=== PATIENT | male | born 1960 | race Caucasian/White ===

== ENCOUNTER → 2018-10-03 | Outpatient (CLI) | payer OTHER ==
[2018-10-03 16:20] LABS: CREATININE 2.1 mg/dL (0.6-1.3); POTASSIUM 5.1 mmol/L (3.5-5.1)
[2018-10-03 22:07] LABS: GLYCOHEMOGLOBIN (HGB A1C) 6.6 % (4.8-5.6)
== END ==
LOC: M.LAB 15:47
PROVIDERS: Internal Medicine Endocrinology, Diabetes & Metabolism
DX: E11.9 Type 2 diabetes mellitus without complications (principal)

== ENCOUNTER → 2019-07-11 | Outpatient (CLI) | payer OTHER ==
[2019-07-11 16:20] LABS: ALBUMIN 3.8 g/dL (3.4-5.0); CALCIUM 8.2 mg/dL (8.5-10.1); CREATININE 2.4 mg/dL (0.6-1.3); PHOSPHORUS* 3.9 mg/dL (2.5-4.9); POTASSIUM 4.8 mmol/L (3.5-5.1)
[2019-07-11 16:23] LABS: URINE BILIRUBIN NEGATIVE (Negative); URINE BLOOD NEGATIVE (Negative); URINE CLARITY CLEAR; URINE COLOR YELLOW; URINE GLUCOSE-RANDOM NEGATIVE (Negative); URINE KETONES NEGATIVE (Negative); URINE LEUKOCYTES NEGATIVE (Negative); URINE NITRITE NEGATIVE (Negative); URINE PROTEIN 2+ (Negative); URINE SPECIFIC GRAVITY >= 1.030 (1.005-1.030); URINE UROBILINOGEN 0.2 E.U./dl (0.2-1.0)
[2019-07-11 16:39] LABS: CASTS None Seen /LPF (None Seen); CRYSTALS None Seen /LPF (None Seen); SQUAMOUS 0-3 Few /LPF (0-3); URINE RBC 0-2 Rare /HPF (0-2); URINE WBC 6-15 Few /HPF (0-5)
== END ==
LOC: M.LAB 15:40
PROVIDERS: Hospitalist
DX: I12.9 Hypertensive chronic kidney disease with stage 1 through stage 4 chronic kidney disease, or unspecified chronic kidney disease (principal); N18.3 Chronic kidney disease, stage 3 (moderate)

== ENCOUNTER 2021-08-25 10:24 | Observation (INO) | payer OTHER ==
[~2021-08-25] VITALS: Ht 175.3 cm; Wt 81.6 kg
--- NOTE | ~2021-08-25 | OP ---
[address] [address] OPERATIVE REPORT Name: OMKAR LOERA Room: [facility]#: [id number] Admission: 08/25/21 Attend Phys: Micah Cody MD Discharge: Date of : 62 Report #: [id number] THIS REPORT FOR: cc: El Walls MD, Neal A. MD Haggard,Micah Mercer MD ~ DATE OF SURGERY: 08/25/2021 PREOPERATIVE DIAGNOSIS: BPH with obstruction. POSTOPERATIVE DIAGNOSIS: BPH with obstruction. PROCEDURE: Cystoscopy, transurethral resection of the prostate. STAFF SURGEON: Micah Cody MD TANK CALIBRATOR: None. ANESTHESIA: General. ESTIMATED BLOOD LOSS: 10 mL. COMPLICATIONS: None. SPECIMEN: Prostate chips. DRAINS 20-Russian 3-way Alberto catheter. INDICATIONS: The patient is a pleasant 60-year-old white male complaining of significant lower urinary tract symptoms. He reports his force of stream is "very, very, very low." He states "it is so bad that I have to sit down and go." He voids every 3-4 hours despite tamsulosin 0.4 mg p.o. b.i.d. He gets up twice at night. 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 Cystoscopically was verified to have bladder outlet obstruction. He was counseled regarding treatment options, elected for definitive cystoscopy with transurethral resection of the prostate. After risks and benefits of the procedure explained, informed consent was obtained. DESCRIPTION OF PROCEDURE: The patient was taken to the operating room comfortably placed in the dorsal lithotomy position under adequate general anesthesia. He was sterilely prepped and draped in standard fashion exposing only the genitalia. He received his antibiotic therapy as prescribed of 2 grams of intravenous Ancef. Appropriate timeout was carried out and all were in agreement. A 22-Russian cystoscope was placed in the urethra. Anterior urethra was normal, sphincter intact. Prostate showed [place] [address] OPERATIVE REPORT Name: OMKAR LOERA Room: [facility]#: [id number] Admission: 08/25/21 Attend Phys: Micah Cody MD Discharge: Date of : 62 Report #: [id number] hyperplasia with visual obstruction. Bladder was systematically viewed. He had vhgl-yn-dkxafowz trabeculation throughout the bladder. No bladder calculi seen or foreign body observed. Both ureteral orifices identified and effluxed clear urine. The cystoscope was removed. Elise sounds from 26-Russian to 28-Russian were used to gently dilate the urethra. 26-Russian continuous flow sheath was gently placed through the urethra into the bladder and Joel resectoscope put in place and technology was used to resect the obstructing prostatic adenoma from bladder neck to the verumontanum circumferentially with care not to damage either the sphincter or either ureteral orifice. Button was put in place. It smoothed out the lining of the prostatic fossa. Ellik evacuator was used to remove prostate chips from the bladder. Plasma loop was put back in place and were used to retrieve some isolated prostate chips that still remained in the bladder and also to fulgurate bleeding within the prostate. Meticulous hemostasis verified. The visual inspection showed no residual fragments in the prostatic fossa or in the bladder. The resectoscope was removed and a 20-Russian 3-way Alberto catheter was put in place over the guidewire and secured with 30 mL of sterile water placed and then clear return. He tolerated this extremely well. He was extubated in the operating room and transferred to [facility] with assistance and went to recovery in stable condition. Anticipate just light irrigation in the recovery room before going to home. May remove his Alberto catheter on Sunday. Follow up in office in a week. By: 1320 1422Ryant Sylvie Cody MD /angela
[~2021-08-25 10:24] MED LIST: AMLODIPINE BESY10 MG PO; FLUTICASONE PRO16 GM NARES; LANTUS SOL100 UNIT/1 SUBQ; LOSARTAN POTAS100 MG PO; PROTONIX40 M2 PO; TAMSULOSIN HCL0.4 MG PO; ZOLOFT 50 MG TA50 MG PO
[2021-08-25 11:05] LABS: HEMATOCRIT 30.2 % (42.0-52.0); HEMOGLOBIN 10.2 gm/dL (14.0-18.0); MCH 33.9 pg (26.0-34.0); MCHC 33.7 g/dL (28.0-37.0); MCV 100.8 fL (80.0-100.0); MPV 7.3 fl. (7.2-11.1); RBC 2.99 mil/uL (4.50-6.00); RDW-CV 12.8 % (10.5-14.5); WBC 6.2 thou/uL (4.0-11.0)
[2021-08-25 11:14] LABS: CALCIUM 8.4 mg/dL (8.5-10.1); CREATININE 3.7 mg/dL (0.6-1.3); POTASSIUM 5.1 mmol/L (3.5-5.1)
--- NOTE | 2021-08-25 14:03 | EKG ---
[place] [address] ELECTROCARDIOGRAM REPORT Name: OMKAR LOERA Room: [facility]#: [id number] Admission: 08/25/21 Attend Phys: Micah Cody MD Discharge: Date of : 62 Date of Service: 08/25/21 [facility] Report #: [id number] THIS REPORT FOR: //name// [facility] Test Date: 2021-08-25 Test Time: 11:00:08 Pat Name: OMKAR LOERA Department: Room: Gender: Aesthetician: KATJA : 1960 Requested By: Micah Cody Order Number: [id number] Tamar MD: Espinoza Carter Measurements Intervals [place] Rate: 53 P: 49 PA: 154 QRS: -17 QRSD: 113 T: 17 QT: 453 QTc: 426 Interpretive Statements Sinus rhythm RSR' in V1 or V2, probably normal variant Inferior infarct, old Consider anterior infarct No previous ECG available for comparison Electronically Signed On 08-25-2021 14:03:23 CDT by Espinoza Carter [email or web address] <ELECTRONICALLY SIGNED> By: Espinoza Carter MD, FACC 08/25/21 1403 1100 1100 Espinoza Carter MD, FAC /EPI
[2021-08-25 21:30] VITALS: BP 157/68
[2021-08-26 08:00] VITALS: BP 149/61
[2021-08-26 14:45] VITALS: BP 149/61
--- NOTE | 2021-08-29 18:06 | PATH ---
[address] [address] PATHOLOGY RPT PROCEDURE Name: JULIO CESAR CHOE Room: [address] Marcelle Salomon#: [id number] Admission: 08/25/21 Date of : 62 Discharge: 08/26/21 Report #: [id number] Path Case #: [id number] [facility] Accession Number: [id number] . 01 Material submitted: . prostate - PROSTATE . 01 Clinical history: . DS/ CYSTOSCOPY W/TRANSURETHRAL INCISION PROSTATE BPH W/OBSTRUCTION . 02 Diagnosis: Prostate: - Benign prostatic tissue including urethral mucosa with mild chronic inflammation, scattered calcification and evidence of hyperplasia. (NAM/db; 08/29/2021) LBQ 08/29/2021 1329 Local . 02 Electronically signed: . Rodolfo Chandler MD, Pathologist NPI- [id number] . 01 Gross description: . The specimen is received fresh, labeled "Julio Cesar Choe, prostate". Received is a 6 g aggregate of light underwood rubbery tissue measuring 7.6 x 4.7 x 1.2 cm in aggregate dimensions. The specimen is submitted entirely in cassettes A1 through A9. (CAA; 08/26/2021) QAC/QAC 08/26/2021 1608 Local . 02 Pathologist provided ICD-10: N41.1 . 02 CPT . 779145 Specimen Comment: A courtesy copy of this report has been sent to [phone] Specimen Comment: [phone], Specimen Comment: Report sent to ,DR SCHOFIELD AND DR JIMENEZ Performed at: 01 [facility] [address], [place] [id number] MD Harsha Villafuerte MD Phone: [phone] Performed at: 02 [facility] [address], [place], [place] [id number] MD Rodolfo Chandler MD Phone: [phone]
== END 2021-08-26 15:37 | disposition home or self-care (01) ==
LOC: M.SUR 10:24 → M.TBA-CV 17:32 → M.3W 19:58
PROVIDERS: ADMIT Urology; ATTEND Urology
DX: N40.1 Benign prostatic hyperplasia with lower urinary tract symptoms (principal); Z20.822 Contact with and (suspected) exposure to COVID-19; E11.9 Type 2 diabetes mellitus without complications; I10 Essential (primary) hypertension; K21.9 Gastro-esophageal reflux disease without esophagitis; I25.2 Old myocardial infarction; Z79.899 Other long term (current) drug therapy